=== PATIENT | female | born 1975 | race Caucasian/White ===

== ENCOUNTER 2023-02-23 07:06 | Emergency (ER) | payer OTHER ==
[2023-02-23 07:40] LABS: #Basophils 0.1 10x3/uL (0.0-0.2); #Eosinphils 0.3 10x3/uL (0.0-0.5); #Monocytes 0.6 10x3/uL (0.0-1.1); #Neutrophils 6.5 10x3/uL (1.5-8.4); %Basophils 0.9 % (0.0-2.0); %Eosinophils 2.8 % (0.0-6.0); %Lymphocytes 30.3 % (18.0-47.0); %Monocytes 5.1 % (0.0-10.0); %Neutrophils 59.7 % (40.0-75.0); Hemoglobin 13.8 g/dL (12.0-15.5); Mean Corpuscular HGB CONC 32.2 g/dL (32.0-36.0); Mean Corpuscular Hemoglobin 28.7 pg (27.0-33.0); Mean Corpuscular Volume 89.2 fl (81.6-98.3); Mean Platelet Volume 9.6 fl (7.4-10.4); Platelet Count 284 10x3/uL (150-450); RBC Distribution Width 13.2 % (11.5-14.5); Red Blood Cell (RBC) Count 4.81 10x6/uL (3.90-5.03); White Blood Cell (WBC) Count 10.9 10x3/uL (3.5-10.5)
[2023-02-23 08:02] LABS: ALT (SGPT) 36 U/L (8-55); AST (SGOT) 26 U/L (5-34); Albumin 3.6 g/dL (3.5-5.0); Alkaline Phosphatase 73 U/L (40-110); Anion Gap 15 mmol/L (10-20); BUN (Urea Nitrogen) 14 mg/dL (7.0-18.7); Bilirubin, Total 0.3 mg/dL (0.2-1.2); CK (CPK) 60 U/L (29-168); Calc. Creatinine Clearance 0 mL/min (70-130); Carbon Dioxide 24 mmol/L (22-29); Chloride 106 mmol/L (98-107); Estimated GFR 109; Globulin 2.6 g/dL (2.4-3.5); Glucose 147 mg/dL (70-105); Potassium 3.7 mmol/L (3.5-5.1); Protein, Total 6.2 g/dL (6.0-8.3); Sodium 141 mmol/L (136-145)
[2023-02-23 08:32] LABS: Lipase 28 U/L (8-78)
[2023-02-23] MEDS ORDERED: Aspirin Chewable 81 MG TAB ONE (08:36)
[2023-02-23] MEDS ORDERED: Nitroglycerin 2% Ointment 1 INCH/1 GM Packet ONE (08:36)
[2023-02-23 10:32] LABS: Troponin I Less than 0.010 ng/mL (< 0.028)
[2023-02-23] MEDS ORDERED: Acetaminophen 500 MG TAB ONE (10:42)
== END 2023-02-23 11:30 | disposition home or self-care (01) ==
LOC: CSHERS 07:06
DX: R07.2 Precordial pain (principal); I10 Essential (primary) hypertension; Z79.899 Other long term (current) drug therapy
CPT/HCPCS: 71045; 80053; 82550; 83690; 83880; 84484; 85025; 93005